=== PATIENT | female | born 2000 | race Caucasian/White ===

== ENCOUNTER 2023-08-26 11:18 | Outpatient (CLI) | payer OTHER, SELFPAY ==
[2023-08-26 15:02] LABS: Chlamydia DNA Amplified* NOT DETECTED (No Detected); GC DNA Amplified* NOT DETECTED (No Detected)
== END 2023-08-26 11:19 | disposition home or self-care (01) ==
LOC: NFLDREF 11:19
PROVIDERS: PCP Nurse Practitioner Family; Visit Provider Registered Nurse
DX: Z11.3 Encounter for screening for infections with a predominantly sexual mode of transmission (principal)
CPT/HCPCS: 87491; 87591

== ENCOUNTER 2025-01-17 11:25 | Outpatient (CLI) | payer OTHER, SELFPAY | END 2025-01-17 11:26 | disposition home or self-care (01) | LOC: KYNREF 13:38 | PROVIDERS: PCP Nurse Practitioner Family; Visit Provider Nurse Practitioner Family | DX: Z11.1 Encounter for screening for respiratory tuberculosis (principal) | CPT/HCPCS: 86480 ==